=== PATIENT | male | born 1955 | race Caucasian/White ===

== ENCOUNTER 2018-04-03 09:57 | Inpatient (IN) | payer MEDICAID ==
[~2018-04-03] VITALS: Ht 177.8 cm; Wt 98.0 kg
[2018-04-03] MEDS ORDERED: SODIUM CHLORIDE 0.9% 1000ML BAG (SEPSIS BOLUS) IV ONE (13:30)
[2018-04-03] MEDS ORDERED: VANCOMYCIN 1 G PREMIX 200 ML IV ONE (13:30)
[2018-04-03] MEDS ORDERED: LEVOFLOXACIN 500MG PREMIX 100 ML IV ONE (14:30)
[2018-04-03] MEDS ORDERED: ONDANSETRON HCL 4MG/2ML INJ IV ONE (14:30)
[2018-04-03] MEDS ORDERED: MORPHINE SULFATE 10 MG/ML CPJ IV ONE (14:30)
[2018-04-03 15:10] LABS: EOSINOPHILS % 2.4 % (0.0-5.0); HEMOGLOBIN. 14.5 g/dL (14.0-18.0); MEAN CORPUSCULAR HEMOGLOBIN 28.3 pg (28.0-32.0); MEAN CORPUSCULAR VOLUME 84.1 fL (80.0-94.0); MEAN PLATELET VOLUME 8.1 fl (7.4-10.4); MONOCYTES % 6.2 % (2.0-8.0); NEUTROPHILS % 44.4 % (40.0-76.0); PLATELET 304 x1000/uL (130-400); RED BLOOD CELL COUNT 5.11 mill/uL (4.7-6.1); RED CELL DISTRIBUTION WIDTH 15.4 % (11.6-14.6)
[2018-04-03 15:12] LABS: CHLORIDE 105 mEq/L (98-107)
[2018-04-03 15:15] LABS: INR 0.9; PARTIAL THROMBOPLASTIN TIME 28.9 sec (23.4-31.0); PROTHROMBIN TIME 9.5 sec (9.1-11.1)
[2018-04-03] MEDS ORDERED: ACETAMINOPHEN 325MG TABLET PO PRN (16:30)
[2018-04-03] MEDS ORDERED: DEXTROSE 50% WATER 50ML SYRINGE IV PRN (16:30)
[2018-04-03] MEDS ORDERED: ONDANSETRON HCL 4MG/2ML INJ IV PRN (16:30)
[2018-04-03] MEDS ORDERED: IPRATROPIUM/ALBUTEROL 0.5-3(2.5)MG/3ML NEB HHN PRN (16:30)
[2018-04-03] MEDS ORDERED: LEVOFLOXACIN 500MG PREMIX 100 ML IV SCH (16:30)
[2018-04-03] MEDS ORDERED: MORPHINE SULFATE 4 MG/ML CPJ (NOT FOR IM USE) IV NR (20:30)
[2018-04-03] MEDS ORDERED: MORPHINE SULFATE 10 MG/ML CPJ IV NR (21:30)
[2018-04-03] MEDS ORDERED: VANCOMYCIN 1 G PREMIX 200 ML IV NR (21:30)
[2018-04-03] MEDS ORDERED: ONDANSETRON HCL 4MG/2ML INJ IV NR (21:30)
[2018-04-03] MEDS ORDERED: LEVOFLOXACIN 500MG PREMIX 100 ML IV NR (21:30)
[2018-04-03] MEDS ORDERED: INSULIN GLARGINE UD 100 UNITS/ML SYR SUBCUT SCH (22:00)
[2018-04-04] VITALS: BP 113/73
[2018-04-04] MEDS ORDERED: INSU100I28 SQ (02:50)
[2018-04-04 02:51] VITALS: BP 128/75
[2018-04-04] MEDS ORDERED: INSU100V3 SUBCUT (02:51)
[2018-04-04 04:00] VITALS: BP 131/68
[2018-04-04] MEDS: VANCOMYCIN 1250MG in DEXTROSE 5% WATER 250ML IV SCH ×2 (05:54→17:03)
[2018-04-04 06:25] LABS: BASOPHILS % 0.9 % (0.0-2.0); EOSINOPHILS % 3.2 % (0.0-5.0); HEMATOCRIT. 39.7 % (42.0-52.0); HEMOGLOBIN. 13.4 g/dL (14.0-18.0); LYMPHOCYTES % 49.5 % (20.0-50.0); MEAN CORPUSCULAR HEMOGLOBIN 27.9 pg (28.0-32.0); MEAN CORPUSCULAR VOLUME 82.8 fL (80.0-94.0); MONOCYTES % 8.5 % (2.0-8.0); NEUTROPHILS % 37.9 % (40.0-76.0); PLATELET 275 x1000/uL (130-400); RED CELL DISTRIBUTION WIDTH 14.7 % (11.6-14.6)
[2018-04-04] MEDS: BLOOD SUGAR DIAGNOSTIC STRIP TEST SCH ×4 (07:20→21:00)
[2018-04-04 07:29] LABS: CHLORIDE 108 mEq/L (98-107)
[2018-04-04 08:00] VITALS: BP 93/27
[2018-04-04] MEDS ORDERED: PNEUMOCOCCAL 23-VAL P-SAC VAC 0.5 ML IM ONE (08:00)
[2018-04-04] MEDS: ENOXAPARIN 30MG/0.3ML SYR SUBCUT SCH ×2 (09:00→22:06)
[2018-04-04] MEDS: INSULIN LISPRO 100 UNITS/ML SUBCUT SCH ×4 (09:08→21:00)
[2018-04-04] MEDS: HYDROCODONE/ACETAMINOPHEN 5/325MG TABLET PO PRN ×2 (09:22→18:58)
[2018-04-04] MEDS ORDERED: INSULIN GLARGINE UD 100 UNITS/ML SYR SUBCUT SCH (10:00)
[2018-04-04 12:00] VITALS: BP 115/59
[2018-04-04 20:00] VITALS: BP 134/77
[2018-04-04] MEDS: LEVOFLOXACIN 500MG PREMIX 100 ML IV SCH (22:07)
[2018-04-04] MEDS: KETOROLAC 30MG/ML VIAL IV PRN (22:09)
[2018-04-04] MEDS: INSULIN GLARGINE UD 100 UNITS/ML SYR SUBCUT SCH (22:23)
[2018-04-05] VITALS: BP 106/58
[2018-04-05] MEDS: VANCOMYCIN 1250MG in DEXTROSE 5% WATER 250ML IV SCH (05:43)
[2018-04-05 07:30] LABS: BASOPHILS % 0.8 % (0.0-2.0); EOSINOPHILS % 2.7 % (0.0-5.0); HEMATOCRIT. 38.6 % (42.0-52.0); HEMOGLOBIN. 12.8 g/dL (14.0-18.0); LYMPHOCYTES % 46.3 % (20.0-50.0); MEAN CORPUSCULAR HEMOGLOBIN 27.4 pg (28.0-32.0); MEAN CORPUSCULAR VOLUME 82.9 fL (80.0-94.0); MEAN PLATELET VOLUME 8.1 fl (7.4-10.4); MONOCYTES % 8.7 % (2.0-8.0); NEUTROPHILS % 41.5 % (40.0-76.0); PLATELET 268 x1000/uL (130-400); RED BLOOD CELL COUNT 4.66 mill/uL (4.7-6.1); RED CELL DISTRIBUTION WIDTH 14.8 % (11.6-14.6)
[2018-04-05] MEDS: BLOOD SUGAR DIAGNOSTIC STRIP TEST SCH ×4 (07:48→21:00)
[2018-04-05 08:00] VITALS: BP 108/60
[2018-04-05] MEDS: ENOXAPARIN 30MG/0.3ML SYR SUBCUT SCH ×2 (09:05→22:08)
[2018-04-05] MEDS: INSULIN LISPRO 100 UNITS/ML SUBCUT SCH ×4 (09:10→21:00)
[2018-04-05] MEDS: INSULIN GLARGINE UD 100 UNITS/ML SYR SUBCUT SCH ×2 (12:54→22:15)
[2018-04-05 20:00] VITALS: BP 107/59
[2018-04-05] MEDS: LEVOFLOXACIN 500MG PREMIX 100 ML IV SCH (22:09)
[2018-04-06] MEDS: BLOOD SUGAR DIAGNOSTIC STRIP TEST SCH ×4 (06:49→20:30)
[2018-04-06] MEDS ORDERED: LIDOCAINE HCL 1% 20ML VIAL (Pyxis) INJ ONE (07:42)
[2018-04-06 07:53] LABS: CHLORIDE 110 mEq/L (98-107)
[2018-04-06 08:00] VITALS: BP 138/67
[2018-04-06] MEDS: INSULIN LISPRO 100 UNITS/ML SUBCUT SCH ×4 (09:14→20:34)
[2018-04-06] MEDS: INSULIN GLARGINE UD 100 UNITS/ML SYR SUBCUT SCH ×2 (09:15→21:40)
[2018-04-06] MEDS: ENOXAPARIN 30MG/0.3ML SYR SUBCUT SCH ×2 (09:17→20:36)
[2018-04-06 12:28] VITALS: BP 125/72
[2018-04-06] MEDS: VANCOMYCIN 750 MG PREMIX 150 ML IV SCH (12:53)
[2018-04-06 16:00] VITALS: BP 102/49
[2018-04-06 20:00] VITALS: BP 125/80
[2018-04-06] MEDS: LEVOFLOXACIN 500MG PREMIX 100 ML IV SCH (21:25)
[2018-04-06] MEDS: HYDROCODONE/ACETAMINOPHEN 5/325MG TABLET PO PRN (21:42)
[2018-04-06 22:20] VITALS: BP 125/80
[2018-04-07] VITALS: BP 100/57
[2018-04-07] MEDS: VANCOMYCIN 750 MG PREMIX 150 ML IV SCH ×2 (01:50→11:31)
[2018-04-07] MEDS ORDERED: SODIUM CHLORIDE 0.9% 1,000 ML IV SCH (07:30)
[2018-04-07] MEDS: INSULIN LISPRO 100 UNITS/ML SUBCUT SCH ×4 (07:50→23:22)
[2018-04-07] MEDS: BLOOD SUGAR DIAGNOSTIC STRIP TEST SCH ×4 (07:54→21:00)
[2018-04-07 08:00] VITALS: BP 149/80
[2018-04-07] MEDS: ENOXAPARIN 30MG/0.3ML SYR SUBCUT SCH ×2 (08:23→21:00)
[2018-04-07] MEDS: INSULIN GLARGINE UD 100 UNITS/ML SYR SUBCUT SCH ×2 (09:29→23:21)
[2018-04-07 12:00] VITALS: BP 164/74
[2018-04-07] MEDS: DEXT 5%/0.9% NACL 1,000 ML IV SCH ×2 (13:59→23:42)
[2018-04-07] MEDS ORDERED: BACITRACIN 50,000 UNITS/VIAL ONE (14:28)
[2018-04-07] MEDS ORDERED: LIDOCAINE HCL 1% 20ML VIAL (Pyxis) INJ ONE (14:28)
[2018-04-07] MEDS ORDERED: BUPIVACAINE HCL/PF 0.5% (5MG/ML) 10ML ONE (14:28)
[2018-04-07] MEDS ORDERED: NORMAL SALINE 0.9% 10 ML SYR ONE ×2 (14:29→15:03)
[2018-04-07] MEDS ORDERED: FENTANYL CITRATE/PF 50MCG/ML 2ML VIAL ONE (14:30)
[2018-04-07] MEDS ORDERED: SUCCINYLCHOLINE CHLORIDE 200MG/10ML IV ONE (14:31)
[2018-04-07] MEDS ORDERED: MIDAZOLAM HCL 2 MG/2 ML VIAL ONE (14:31)
[2018-04-07] MEDS ORDERED: GLYCOPYRROLATE 0.2 MG/ML 2ML VIAL ONE (14:31)
[2018-04-07] MEDS ORDERED: METOCLOPRAMIDE HCL 10MG/2ML VIAL ONE (14:31)
[2018-04-07] MEDS ORDERED: PROPOFOL 200MG/20ML VIAL IV ONE (14:31)
[2018-04-07] MEDS ORDERED: ONDANSETRON HCL 4MG/2ML INJ ONE (14:31)
[2018-04-07] MEDS ORDERED: LIDOCAINE HCL/PF 1% 10 MG/ML 5ML VIAL ONE (14:31)
[2018-04-07] MEDS ORDERED: DEXAMETHASONE 4MG/ML 1ML VIAL ONE (14:42)
[2018-04-07] MEDS ORDERED: SODIUM CHLORIDE 0.9% 1,000 ML IV ONE (15:13)
[2018-04-07] MEDS ORDERED: ONDANSETRON HCL 4MG/2ML INJ IV PRN (15:15)
[2018-04-07 16:00] VITALS: BP 136/73
[2018-04-07] MEDS: KETOROLAC 30MG/ML VIAL IV PRN (16:56)
[2018-04-07] MEDS: HYDROMORPHONE HCL/PF 2MG/ML CPJ IV PRN ×2 (17:05→17:14)
[2018-04-07 20:00] VITALS: BP 134/65
[2018-04-07] MEDS: LEVOFLOXACIN 500MG PREMIX 100 ML IV SCH (23:31)
[2018-04-08] VITALS: BP 97/63
[2018-04-08] MEDS: VANCOMYCIN 750 MG PREMIX 150 ML IV SCH ×3 (02:12→23:51)
[2018-04-08 04:00] VITALS: BP 153/76
[2018-04-08] MEDS: KETOROLAC 30MG/ML VIAL IV PRN (04:48)
[2018-04-08] MEDS: BLOOD SUGAR DIAGNOSTIC STRIP TEST SCH ×4 (07:20→21:00)
[2018-04-08 08:03] LABS: BASOPHILS % 0.2 % (0.0-2.0); HEMATOCRIT. 39.5 % (42.0-52.0); HEMOGLOBIN. 13.4 g/dL (14.0-18.0); LYMPHOCYTES % 20.3 % (20.0-50.0); MEAN CORPUSCULAR VOLUME 82.4 fL (80.0-94.0); MEAN PLATELET VOLUME 8.2 fl (7.4-10.4); MONOCYTES % 4.9 % (2.0-8.0); NEUTROPHILS % 74.6 % (40.0-76.0); PLATELET 263 x1000/uL (130-400); RED BLOOD CELL COUNT 4.79 mill/uL (4.7-6.1); RED CELL DISTRIBUTION WIDTH 14.9 % (11.6-14.6)
[2018-04-08 08:41] LABS: CHLORIDE 108 mEq/L (98-107)
[2018-04-08] MEDS: INSULIN LISPRO 100 UNITS/ML SUBCUT SCH ×4 (10:13→21:57)
[2018-04-08] MEDS: DEXT 5%/0.9% NACL 1,000 ML IV SCH ×2 (10:14→22:45)
[2018-04-08] MEDS: INSULIN GLARGINE UD 100 UNITS/ML SYR SUBCUT SCH ×2 (10:14→21:58)
[2018-04-08] MEDS: ENOXAPARIN 30MG/0.3ML SYR SUBCUT SCH ×2 (10:15→21:00)
[2018-04-08 12:00] VITALS: BP 125/73
[2018-04-08] MEDS ORDERED: LANTUSUD SUBCUT (15:19)
[2018-04-08 16:12] VITALS: BP 134/68
[2018-04-08 20:00] VITALS: BP 117/64
[2018-04-08] MEDS: LEVOFLOXACIN 500MG PREMIX 100 ML IV SCH (22:11)
[2018-04-09] VITALS: BP 124/69
[2018-04-09] MEDS: HYDROCODONE/ACETAMINOPHEN 5/325MG TABLET PO PRN ×2 (00:20→04:25)
[2018-04-09 04:00] VITALS: BP 139/70
[2018-04-09] MEDS: DEXT 5%/0.9% NACL 1,000 ML IV SCH ×2 (05:45→15:45)
[2018-04-09] MEDS: BLOOD SUGAR DIAGNOSTIC STRIP TEST SCH ×3 (07:20→17:20)
[2018-04-09] MEDS: INSULIN LISPRO 100 UNITS/ML SUBCUT SCH ×3 (07:50→17:50)
[2018-04-09 08:00] VITALS: BP 112/51
[2018-04-09] MEDS: ENOXAPARIN 30MG/0.3ML SYR SUBCUT SCH (09:47)
[2018-04-09] MEDS: INSULIN GLARGINE UD 100 UNITS/ML SYR SUBCUT SCH (09:50)
[2018-04-09 12:00] VITALS: BP 134/65
[2018-04-09] MEDS: VANCOMYCIN 750 MG PREMIX 150 ML IV SCH (12:10)
[2018-04-09 15:17] VITALS: BP 134/65
== END 2018-04-09 20:30 | disposition home health service (06) | DRG 317 ==
LOC: ER 10:38 → 6EST 14:48 → EDBEDREQ 14:53 → EDBEDREQTM 14:53 → ENRESERV 14:54
PROVIDERS: ADMIT Internal Medicine; ATTEND Internal Medicine
PROC: 02HV33Z Insertion of Infusion Device into Superior Vena Cava, Percutaneous Approach (ICD-10-PCS; 2018-04-06)
PROC: B548ZZA Ultrasonography of Superior Vena Cava, Guidance (ICD-10-PCS; 2018-04-06)
PROC: B5181ZA Fluoroscopy of Superior Vena Cava using Low Osmolar Contrast, Guidance (ICD-10-PCS; 2018-04-06)
PROC: 0L8V0ZZ Division of Right Foot Tendon, Open Approach (ICD-10-PCS; principal; 2018-04-09)
PROC: 0JBQ0ZZ Excision of Right Foot Subcutaneous Tissue and Fascia, Open Approach (ICD-10-PCS; 2018-04-09)
DX: E11.69 Type 2 diabetes mellitus with other specified complication (principal); M86.171 Other acute osteomyelitis, right ankle and foot; E11.621 Type 2 diabetes mellitus with foot ulcer; L97.519 Non-pressure chronic ulcer of other part of right foot with unspecified severity; E11.65 Type 2 diabetes mellitus with hyperglycemia; E86.0 Dehydration; L08.9 Local infection of the skin and subcutaneous tissue, unspecified; M24.573 Contracture, unspecified ankle; M67.00 Short Achilles tendon (acquired), unspecified ankle; Z89.431 Acquired absence of right foot; Z89.432 Acquired absence of left foot; Z88.0 Allergy status to penicillin
CPT/HCPCS: 36415; 36569; 71045; 73630; 73721; 76937; 77001; 80048; 80202; 82962; 83605; 84145; 86850; 86900; 87070; 87075; 87077; 90732; 93005; 93923; 93970; 96365; 96375; 97161; 99285; C1725; J0330; J1100; J1170; J1650; J1815; J1885; J1956; J2250; J2270; J2405; J2704; J2765; J3010; J3370; J3490; J7030; J7040; J7042; J7060

== ENCOUNTER 2018-04-12 17:32 | Emergency (ER) | payer MEDICAID ==
[~2018-04-12] VITALS: Ht 177.8 cm; Wt 96.4 kg
[~2018-04-12 17:32] MED LIST: LANTUSUD SUBCUT
[2018-04-13] MEDS ORDERED: ACETAMINOPHEN 325MG TABLET PO ONE (06:45)
[2018-04-13 10:32] VITALS: BP 131/72
== END 2018-04-13 10:48 | disposition home or self-care (01) ==
LOC: ER 17:32
DX: T82.599A Other mechanical complication of unspecified cardiac and vascular devices and implants, initial encounter (principal); M79.89 Other specified soft tissue disorders; M86.9 Osteomyelitis, unspecified; E11.9 Type 2 diabetes mellitus without complications; Z89.9 Acquired absence of limb, unspecified; Z88.0 Allergy status to penicillin; Z98.890 Other specified postprocedural states
CPT/HCPCS: 82962; 93971; 99284; Z7610

== ENCOUNTER 2018-05-03 12:09 | Emergency (ER) | payer MEDICAID ==
[~2018-05-03] VITALS: Ht 177.8 cm; Wt 87.0 kg
[2018-05-03 15:12] VITALS: BP 128/79
== END 2018-05-03 15:15 | disposition home or self-care (01) ==
LOC: ER 15:03
DX: T82.594A Other mechanical complication of infusion catheter, initial encounter (principal); E11.9 Type 2 diabetes mellitus without complications; Z89.421 Acquired absence of other right toe(s); Z88.0 Allergy status to penicillin; Z79.4 Long term (current) use of insulin; Y83.8 Other surgical procedures as the cause of abnormal reaction of the patient, or of later complication, without mention of misadventure at the time of the procedure; Y92.018 Other place in single-family (private) house as the place of occurrence of the external cause
CPT/HCPCS: 99285

== ENCOUNTER 2018-05-06 23:08 | Emergency (ER) | payer MEDICAID ==
[~2018-05-06] VITALS: Ht 177.8 cm; Wt 97.0 kg
[2018-05-07] MEDS ORDERED: KETOROLAC 60MG/2ML VIAL IM ONE (06:45)
[2018-05-07 07:23] LABS: BASOPHILS % 0.6 % (0.0-2.0); HEMATOCRIT. 37.5 % (42.0-52.0); HEMOGLOBIN. 12.9 g/dL (14.0-18.0); LYMPHOCYTES % 33.1 % (20.0-50.0); MEAN CORPUSCULAR HEMOGLOBIN 28.4 pg (28.0-32.0); MEAN CORPUSCULAR VOLUME 82.4 fL (80.0-94.0); MEAN PLATELET VOLUME 9.3 fl (7.4-10.4); MONOCYTES % 10.6 % (2.0-8.0); NEUTROPHILS % 53.7 % (40.0-76.0); PLATELET 235 x1000/uL (130-400); RED BLOOD CELL COUNT 4.54 mill/uL (4.7-6.1); RED CELL DISTRIBUTION WIDTH 15.7 % (11.6-14.6)
[2018-05-07 07:25] LABS: CHLORIDE 106 mEq/L (98-107)
[2018-05-07] MEDS ORDERED: DOXYCYCLINE HYCLATE 100MG CAPSULE PO ONE (09:15)
[2018-05-07 11:18] VITALS: BP 110/60
== END 2018-05-07 11:45 | disposition home or self-care (01) ==
LOC: ER 23:08
DX: T87.89 Other complications of amputation stump (principal); L03.115 Cellulitis of right lower limb; L97.819 Non-pressure chronic ulcer of other part of right lower leg with unspecified severity; E11.9 Type 2 diabetes mellitus without complications; Z89.422 Acquired absence of other left toe(s); Z89.421 Acquired absence of other right toe(s); Z88.0 Allergy status to penicillin; Y83.5 Amputation of limb(s) as the cause of abnormal reaction of the patient, or of later complication, without mention of misadventure at the time of the procedure; Y92.018 Other place in single-family (private) house as the place of occurrence of the external cause
CPT/HCPCS: 36415; 73630; 80053; 83605; 85025; 87040; 93970; 96372; 99284; J1885

== ENCOUNTER 2018-11-05 14:12 | Inpatient (IN) | payer MEDICARE, MEDICAID ==
[~2018-11-05] VITALS: Ht 177.8 cm; Wt 96.2 kg
[2018-11-05] MEDS ORDERED: CLINDAMYCIN 600 MG in DEXTROSE 5% WATER 50 ML IV ONE (16:45)
[2018-11-05] MEDS ORDERED: CLINDAMYCIN 600MG PREMIX 50 ML IV SCH (17:00)
[2018-11-05 17:09] LABS: BASOPHILS % 0.5 % (0.0-2.0); EOSINOPHILS % 1.4 % (0.0-5.0); HEMATOCRIT. 38.5 % (42.0-52.0); HEMOGLOBIN. 13.4 g/dL (14.0-18.0); LYMPHOCYTES % 32.7 % (20.0-50.0); MEAN CORPUSCULAR HEMOGLOBIN 29.7 pg (28.0-32.0); MEAN CORPUSCULAR VOLUME 85.7 fL (80.0-94.0); MONOCYTES % 6.5 % (2.0-8.0); NEUTROPHILS % 58.9 % (40.0-76.0); PLATELET 233 x1000/uL (130-400); RED BLOOD CELL COUNT 4.49 mill/uL (4.7-6.1); RED CELL DISTRIBUTION WIDTH 14.4 % (11.6-14.6)
[2018-11-05 17:10] LABS: CHLORIDE 109 mEq/L (98-107)
[2018-11-05 17:12] LABS: INR 0.9; PROTHROMBIN TIME 9.7 sec (9.6-11.0)
[2018-11-05 20:25] VITALS: BP 149/82
[2018-11-05 21:00] VITALS: BP 149/82
[2018-11-05] MEDS ORDERED: HYDROCODONE/ACETAMINOPHEN 5/325MG TABLET PO PRN (22:15)
[2018-11-05] MEDS: ENOXAPARIN 30MG/0.3ML SYR SUBCUT SCH (22:45)
[2018-11-05] MEDS ORDERED: DEXTROSE 50% WATER 50ML SYRINGE IV PRN (22:45)
[2018-11-06] VITALS: BP 147/86
[2018-11-06] MEDS ORDERED: VANCOMYCIN 1500MG in DEXTROSE 5% WATER 250ML IV SCH (01:00)
[2018-11-06] MEDS ORDERED: LEVOFLOXACIN 500MG PREMIX 100 ML IV SCH (01:00)
[2018-11-06] MEDS ORDERED: LEVOFLOXACIN 250MG PREMIX 50 ML IV SCH (01:00)
[2018-11-06 04:00] VITALS: BP 156/84
[2018-11-06] MEDS: MORPHINE SULFATE 2 MG/ML CPJ (NOT FOR IM USE) IV PRN ×3 (05:07→14:04)
[2018-11-06] MEDS ORDERED: PIPERACILLIN/TAZOBACTAM 2.25 G in DEXTROSE 5% WATER 50 ML IV SCH (06:00)
[2018-11-06] MEDS: BLOOD SUGAR DIAGNOSTIC STRIP TEST SCH ×2 (06:29→12:40)
[2018-11-06 07:19] LABS: HEMATOCRIT. 38.3 % (42.0-52.0); MEAN CORPUSCULAR HEMOGLOBIN 28.9 pg (28.0-32.0); MEAN CORPUSCULAR VOLUME 85.1 fL (80.0-94.0); MEAN PLATELET VOLUME 8.1 fl (7.4-10.4); PLATELET 241 x1000/uL (130-400); RED CELL DISTRIBUTION WIDTH 14.4 % (11.6-14.6)
[2018-11-06 07:29] LABS: CHLORIDE 110 mEq/L (98-107)
[2018-11-06 08:00] VITALS: BP 121/79
[2018-11-06] MEDS: ENOXAPARIN 30MG/0.3ML SYR SUBCUT SCH (08:29)
[2018-11-06] MEDS: INSULIN LISPRO 100 UNITS/ML SUBCUT SCH ×2 (08:32→15:03)
[2018-11-06 10:18] LABS: PLATELET ESTIMATE NORMAL
[2018-11-06 12:00] VITALS: BP 139/72
[2018-11-06] MEDS ORDERED: VANCOMYCIN 1 G PREMIX 200 ML IV SCH (13:00)
[2018-11-06 16:00] VITALS: BP 142/79
[2018-11-06] MEDS ORDERED: VANCOMYCIN 750 MG PREMIX 150 ML IV SCH (18:00)
[2018-11-06 18:15] VITALS: BP 142/79
== END 2018-11-06 18:30 | disposition home or self-care (01) | DRG 364 ==
LOC: ER 14:12 → EDBEDREQ 16:42 → 6EST 17:15 → EDBEDREQ 18:47 → EDBEDREQSVC 18:47 → ENRESERV 19:45
PROVIDERS: ADMIT Internal Medicine; ATTEND Emergency Medicine
PROC: 0KBV0ZZ Excision of Right Foot Muscle, Open Approach (ICD-10-PCS; principal; 2018-11-06)
DX: E11.621 Type 2 diabetes mellitus with foot ulcer (principal); L97.519 Non-pressure chronic ulcer of other part of right foot with unspecified severity; E11.40 Type 2 diabetes mellitus with diabetic neuropathy, unspecified; D64.9 Anemia, unspecified; Z89.439 Acquired absence of unspecified foot; Z88.0 Allergy status to penicillin
CPT/HCPCS: 36415; 71045; 73630; 82962; 83605; 85651; 86140; 93970; 99285; J1650; J1815; J1956; J2270; J3370; J3490; J7060

== ENCOUNTER 2019-02-26 21:39 | Emergency (ER) | payer MEDICARE, MEDICAID ==
[~2019-02-26] VITALS: Ht 177.8 cm; Wt 97.0 kg
[2019-02-27 03:53] VITALS: BP 150/86
== END 2019-02-27 03:55 | disposition home or self-care (01) ==
LOC: ER 21:39
DX: M79.2 Neuralgia and neuritis, unspecified (principal); E11.621 Type 2 diabetes mellitus with foot ulcer; Z88.0 Allergy status to penicillin; Z79.4 Long term (current) use of insulin; Z98.890 Other specified postprocedural states
CPT/HCPCS: 99283